=== PATIENT | male | born 1970 | race African-American/Black ===

== ENCOUNTER 2017-03-24 21:10 | Emergency (ER) | payer MEDICAID ==
[~2017-03-24] VITALS: Ht 177.8 cm; Wt 79.4 kg
[~2017-03-24 21:10] MED LIST: ALDACTONE25 MG PO; ASPIR 8181 MG PO; ATIVAN1 MG PO; AUGMENTIN 875-1 EACH PO; CIPRO500 MG PO; CIPROFLOXACIN500 M1 PO; COZAAR 25 MG TA25 M1 PO; ELOQUIS PO; HYDROCHLOROTHIA25 M2 PO; LASIX 40 MG TAB40 M2 PO; LASIX 80 MG TAB80 MG PO; LISINOPRIL20 MG PO; NORCO 5-325 TA1 EAC1 PO; NORCO 5-325 TA1 EACH PO; PERCOCET PO; POTASSIUM20 PO; PROAIR HFA8.5 GM INH; PROMETHAZINE/C118 ML PO; TOPROL XL25 MG PO; XANAX 0.5 MG0.5 M1 PO; XANAX 0.5 MG0.5 MG PO; XANAX 1 MG TABLE1 MG PO; ZYRTEC10 M5 PO; ZYRTEC10 MG PO
[2017-03-24 21:12] VITALS: BP 121/69
[2017-03-24] MEDS ORDERED: LASIX 80 MG TAB80 MG PO (21:26)
== END 2017-03-24 21:35 | disposition home or self-care (01) ==
LOC: M.ERS 21:10
DX: Z76.0 Encounter for issue of repeat prescription (principal); I11.0 Hypertensive heart disease with heart failure; Z88.1 Allergy status to other antibiotic agents

== ENCOUNTER 2017-04-18 22:46 | Emergency (ER) | payer OTHER ==
[~2017-04-18] VITALS: Ht 177.8 cm; Wt 79.4 kg
[2017-04-18 22:51] VITALS: BP 118/83
== END 2017-04-18 23:25 | disposition left against medical advice (07) ==
LOC: M.ERS 22:46
DX: Z53.21 Procedure and treatment not carried out due to patient leaving prior to being seen by health care provider (principal)

== ENCOUNTER 2017-06-11 19:50 | Emergency (ER) | payer OTHER ==
[~2017-06-11] VITALS: Ht 177.8 cm; Wt 83.9 kg
[2017-06-11 20:46] LABS: ABSOLUTE BASOPHILS 0.1 thou/uL (0.0-0.2); ABSOLUTE EOSINOPHILS 0.2 thou/uL (0.0-0.7); ABSOLUTE LYMPHOCYTES 1.8 thou/uL (0.8-5.3); ABSOLUTE MONOCYTES 0.9 thou/uL (0.0-1.2); ABSOLUTE NEUTROPHILS 6.3 thou/uL (1.6-8.1); BASOPHILS 0.9 %; EOSINOPHILS 1.8 %; HEMATOCRIT 36.4 % (42.0-52.0); HEMOGLOBIN 11.4 gm/dL (14.0-18.0); LYMPHOCYTES 19.3 %; MCH 27.1 pg (26.0-34.0); MCHC 31.3 g/dL (28.0-37.0); MCV 86.7 fL (80.0-100.0); MONOCYTES 9.4 %; MPV 9.5 fl. (7.2-11.1); NUCLEATED RBCS 0 /100WBC; PLATELET COUNT* 208 thou/uL (150-400); POLYS 68.6 %; RBC 4.19 mil/uL (4.50-6.00); RDW-CV 16.8 % (10.5-14.5); WBC 9.2 thou/uL (4.0-11.0)
[2017-06-11] MEDS ORDERED: PERCOCET 7.5-31 EACH PO (20:51)
[2017-06-11 21:02] LABS: CALCIUM 8.5 mg/dL (8.5-10.1); POTASSIUM 3.3 mmol/L (3.5-5.1)
[2017-06-11] MEDS ORDERED: COZAAR 25 MG TA25 M1 PO (21:09)
[2017-06-11] MEDS ORDERED: LASIX 80 MG TAB80 MG PO (21:09)
[2017-06-11] MEDS ORDERED: SPIRONOLACTONE25 M1 PO (21:10)
[2017-06-11 21:13] LABS: ALBUMIN 3.2 g/dL (3.4-5.0); TOTAL BILIRUBIN 0.9 mg/dL (<0.1-1.0); TOTAL PROTEIN 7.4 g/dL (6.4-8.2)
[2017-06-11] MEDS ORDERED: POTASSIUM20 PO (21:16)
[2017-06-11 21:30] VITALS: BP 116/87
[2017-06-12] MEDS ORDERED: BUMETANIDE0.25 MG/1 PO (18:10)
[2017-06-12] MEDS ORDERED: MEDROLDOSEPACK PO (19:53)
== END 2017-06-11 21:33 | disposition home or self-care (01) ==
LOC: M.ERS 19:50
PROVIDERS: Physician Assistant
DX: R07.81 Pleurodynia (principal); Z76.0 Encounter for issue of repeat prescription; I11.0 Hypertensive heart disease with heart failure; I50.9 Heart failure, unspecified; F17.210 Nicotine dependence, cigarettes, uncomplicated; Z88.1 Allergy status to other antibiotic agents

== ENCOUNTER 2017-06-12 17:47 | Emergency (ER) | payer OTHER ==
[~2017-06-12] VITALS: Ht 177.8 cm; Wt 94.2 kg
[~2017-06-12 17:47] MED LIST changes: +PERCOCET 7.5-31 EACH PO; +SPIRONOLACTONE25 M1 PO
[2017-06-12] MEDS ORDERED: BUMETANIDE0.25 MG/1 PO (18:10)
[2017-06-12] MEDS ORDERED: MEDROLDOSEPACK PO (19:53)
[2017-06-12 19:59] VITALS: BP 100/67
== END 2017-06-12 19:59 | disposition home or self-care (01) ==
LOC: M.ERS 17:47
DX: T50.995A Adverse effect of other drugs, medicaments and biological substances, initial encounter (principal); I50.9 Heart failure, unspecified; I11.0 Hypertensive heart disease with heart failure; F17.210 Nicotine dependence, cigarettes, uncomplicated; Z88.1 Allergy status to other antibiotic agents; Y92.89 Other specified places as the place of occurrence of the external cause

== ENCOUNTER 2017-06-25 21:31 | Inpatient (IN) | payer OTHER ==
[~2017-06-25] VITALS: Ht 177.8 cm; Wt 96.0 kg
[~2017-06-25 21:31] MED LIST changes: +BUMETANIDE0.25 MG/1 PO; +MEDROLDOSEPACK PO
[2017-06-25 21:34] VITALS: BP 126/90
[2017-06-25 22:00] LABS: ABSOLUTE BASOPHILS 0.1 thou/uL (0.0-0.2); ABSOLUTE EOSINOPHILS 0.1 thou/uL (0.0-0.7); ABSOLUTE LYMPHOCYTES 1.5 thou/uL (0.8-5.3); ABSOLUTE MONOCYTES 0.8 thou/uL (0.0-1.2); ABSOLUTE NEUTROPHILS 5.1 thou/uL (1.6-8.1); BASOPHILS 1.4 %; EOSINOPHILS 1.7 %; HEMATOCRIT 33.7 % (42.0-52.0); HEMOGLOBIN 10.5 gm/dL (14.0-18.0); LYMPHOCYTES 19.9 %; MCHC 31.1 g/dL (28.0-37.0); MCV 83.7 fL (80.0-100.0); MONOCYTES 10.1 %; MPV 9.6 fl. (7.2-11.1); NUCLEATED RBCS 0 /100WBC; PLATELET COUNT* 177 thou/uL (150-400); POLYS 66.9 %; RBC 4.03 mil/uL (4.50-6.00); RDW-CV 18.1 % (10.5-14.5); WBC 7.6 thou/uL (4.0-11.0)
[2017-06-25 22:14] LABS: ANION GAP 6 mmol/L (7-16); BUN 14 mg/dL (7-18); CALCIUM 8.2 mg/dL (8.5-10.1); CHLORIDE 103 mmol/L (98-107); CO2 32 mmol/L (21-32); CREATININE 1.6 mg/dL (0.6-1.3); GLUCOSE 135 mg/dL (70-99); POTASSIUM 3.5 mmol/L (3.5-5.1); SODIUM 141 mmol/L (136-145)
[2017-06-25 22:20] LABS: APTT 26.3 Seconds (25.0-31.3); INR 1.5; PROTIME 14.3 Seconds (9.20-11.50)
[2017-06-25 22:25] LABS: ALBUMIN 2.8 g/dL (3.4-5.0); ALKALINE PHOSPHATASE 82 U/L (46-116); NT-PRO BRAIN NAT PEPTIDE 2990 pg/mL (<300); SGOT 22 U/L (15-37); SGPT 36 U/L (30-65); TOTAL BILIRUBIN 1.1 mg/dL (<0.1-1.0); TOTAL PROTEIN 7.2 g/dL (6.4-8.2); TROPONIN-I LEVEL <0.06 ng/mL (<0.06)
[2017-06-25 22:47] LABS: URINE BILIRUBIN NEGATIVE (Negative); URINE BLOOD TRACE (Negative); URINE CLARITY CLEAR; URINE COLOR YELLOW; URINE GLUCOSE-RANDOM NEGATIVE (Negative); URINE KETONES NEGATIVE (Negative); URINE NITRITE-REFLEX NEGATIVE (Negative); URINE PROTEIN TRACE (Negative); URINE SPECIFIC GRAVITY 1.015 (1.005-1.030)
[2017-06-25 22:49] LABS: URINE LEUKOCYTES-REFLEX 2+ (Negative)
[2017-06-25 22:58] LABS: HYALINE CASTS 0-3 Few /LPF (None Seen); MUCUS None Seen strn/LPF (None Seen); SQUAMOUS >10 Many /LPF (0-3)
[2017-06-25 22:59] LABS: URINE WBC-REFLEX >25 Many /HPF (0-5); WBC CLUMPS Few (None Seen)
[2017-06-25 23:00] LABS: BACTERIA-REFLEX 1-9 Few /HPF (None Seen); CRYSTALS None Seen /LPF (None Seen); URINE RBC 0-2 Rare /HPF (0-2)
[2017-06-25 23:57] VITALS: BP 115/81
[2017-06-26 00:15] VITALS: BP 109/83
[2017-06-26 04:00] VITALS: BP 118/88
[2017-06-26 08:00] VITALS: BP 93/69
[2017-06-26 10:15] LABS: CALCIUM 8.5 mg/dL (8.5-10.1); CREATININE 1.4 mg/dL (0.6-1.3); MAGNESIUM 1.8 mg/dL (1.8-2.4); POTASSIUM 4.1 mmol/L (3.5-5.1)
[2017-06-26 12:00] VITALS: BP 117/87
--- NOTE | 2017-06-26 15:08 | EKG ---
[place] [address] ELECTROCARDIOGRAM REPORT Name: DARRION MCDANIEL Room: [address] ADM IN M.R.#: [id number] Admission: 06/25/17 Attend Phys: Gus Castillo MD Discharge: Date of : 70 Report #: [id number] THIS REPORT FOR: //name// [facility] ED Test Date: 2017-06-25 Test Time: 22:00:50 Pat Name: DARRION MCDANIEL Department: Room: [facility] Gender: M Synchronizer: BD : 1970 Requested By: Margaret Nielsen Order Number: [id number] MD: William Jordan Measurements Intervals [place] Rate: 97 P: 65 NC: 158 QRS: 1 QRSD: 89 T: QT: 385 QTc: 489 Interpretive Statements Sinus rhythm Probable left atrial enlargement Nonspecific T abnormalities, lateral leads Borderline prolonged QT interval Baseline wander in lead(s) V5 Compared to ECG 02/20/2017 01:02:54 T-wave abnormality now present Electronically Signed On 06-26-2017 15:08:00 CDT by William Jordan [email or web address] <ELECTRONICALLY SIGNED> By: William Jordan MD, [facility] 06/26/17 1508 99 99 William Jordan MD, [facility] /EPI
--- NOTE | 2017-06-26 15:20 | 2DMMODE ---
[place] [address] 2 D/M-MODE ECHOCARDIOGRAM Name: DARRION MCDANIEL Room: [address] IN [facility]#: [id number] Admission: 06/25/17 Attend Phys: Gus Castillo, Discharge: Date of : 70 Date of Service: 06/26/17 1520 Report #: [id number] THIS REPORT FOR: //name// APPROVED REPORT Study performed: 06/26/2017 14:01:01 EXAM: Comprehensive 2D, Doppler, and color-flow Echocardiogram Patient Location: In-Patient Room #: [facility] Status: routine BSA: 2.14 HR: 96 bpm BP: 117/87 mmHg Rhythm: NSR Other Information Study Quality: Good Indications Congestive Heart Failure Dyspnea 2D Dimensions LVEF(%): 8.76 (>50%) IVSd: 9.79 (7-11mm) LVOT Diam: 19.59 (18-24mm) LVDd: 60.78 mm PWd: 9.93 (7-11mm) Ascending Ao: 29.19 (22-36mm) LVDs: 58.39 (25-40mm) Aortic Root: 31.54 mm Dukes's LVEF: 8.76 % Volumes Left Atrial Volume (Systole) LA ESV Index: 65.70 mL/m2 Aortic Valve AoV Peak Kemal.: 0.60 m/s AO Peak Gr.: 1.46 mmHg LVOT Max P.42 mmHg AO Mean Gr.: 0.96 mmHg LVOT Mean P.31 mmHg LVOT Max V: 0.78 m/s AO V2 VTI: 6.32 cm LVOT Mean V: 0.54 m/s JENNIFER (VTI): 4.77 cm2 LVOT V1 VTI: 10.00 [place] [address] 2 D/M-MODE ECHOCARDIOGRAM Name: DARRION MCDANIEL Room: [address] IN .R.#: [id number] Admission: 06/25/17 Attend Phys: Gus Castillo, Discharge: Date of : 70 Date of Service: 06/26/17 1520 Report #: [id number] E/A Ratio: 2.57 MV Decel. Time: 88.13 ms MV E Max Kemal.: 0.79 m/s MV PHT: 25.56 ms MVA (PHT): 8.61 cm2 TDI E/Lateral E': 7.18 Lateral E' Kemal.: 0.11 m/s Pulmonary Valve PV Peak Kemal.: 0.56 m/s PV Peak Gr.: 1.26 mmHg Tricuspid Valve TR Peak Gr.: 17.38 mmHg RVSP: 32.00 mmHg Left Ventricle Left ventricle is moderately dilated. Severe global hypokinesis. There is normal left ventricular wall thickness. Left ventricular systolic function is severely decreased. LVEF is 20%. Grade IV - fixed restrictive diastolic dysfunction. Right Ventricle Right ventricle is mildly dilated. The right ventricular systolic function is normal. Pacemaker lead is present in the right ventricle. Atria Left atrium is moderately dilated. Right atrium is dilated. Aortic Valve Mild aortic valve sclerosis. Trace aortic regurgitation. There is no aortic valvular stenosis. Mitral Valve The mitral valve is normal in structure. Mild mitral regurgitation. No evidence of mitral valve stenosis. Tricuspid Valve The tricuspid valve is normal in structure. Moderate tricuspid regurgitation. The RVSP is 30-35 mmHg. Pulmonic Valve The pulmonary valve is normal in structure. Mild pulmonic [place]itation[place] [address] 2 D/M-MODE ECHOCARDIOGRAM Name: DARRION MCDANIEL Room: [address]#: [id number] Admission: 06/25/17 Attend Phys: Gus Castillo, Discharge: Date of : 70 Date of Service: 06/26/17 1520 Report #: [id number] The aortic root is normal in size. IVC is dilated and collapses <50% with inspiration. Pericardium There is no pericardial effusion. <Conclusion> Left ventricle is moderately dilated. There is normal left ventricular wall thickness. Left ventricular systolic function is severely decreased. LVEF is 20%. Grade IV - fixed restrictive diastolic dysfunction. Right ventricle is mildly dilated. Left atrium is moderately dilated. Right atrium is dilated. Mild aortic valve sclerosis. Trace aortic regurgitation. There is no aortic valvular stenosis. The mitral valve is normal in structure. Mild mitral regurgitation. The tricuspid valve is normal in structure. Moderate tricuspid regurgitation. The RVSP is 30-35 mmHg. IVC is dilated and collapses <50% with inspiration. There is no pericardial effusion. Severe global hypokinesis. Pacemaker lead is present in the right ventricle. <ELECTRONICALLY SIGNED> By: William Jordan MD, FACC 06/26/17 1520 1520 1520 William Jordan MD, FACC /INF
== END 2017-06-26 15:23 | disposition left against medical advice (07) | DRG 291 ==
LOC: M.ERS 21:31 → M.TBA-ER 23:14 → M.2W 23:29
PROVIDERS: Personal Emergency Response Attendant; ADMIT Internal Medicine
DX: I13.0 Hypertensive heart and chronic kidney disease with heart failure and stage 1 through stage 4 chronic kidney disease, or unspecified chronic kidney disease (principal); I50.23 Acute on chronic systolic (congestive) heart failure; N39.0 Urinary tract infection, site not specified; F17.210 Nicotine dependence, cigarettes, uncomplicated; R33.9 Retention of urine, unspecified; I42.9 Cardiomyopathy, unspecified; Z88.8 Allergy status to other drugs, medicaments and biological substances; Z88.1 Allergy status to other antibiotic agents; Z79.899 Other long term (current) drug therapy; Z91.14 Patient's other noncompliance with medication regimen; Z95.810 Presence of automatic (implantable) cardiac defibrillator

== ENCOUNTER 2017-06-29 22:18 | Emergency (ER) | payer OTHER ==
[~2017-06-29] VITALS: Ht 177.8 cm; Wt 96.6 kg
[2017-06-29 22:58] LABS: MCH 25.9 pg (26.0-34.0); MCHC 30.9 g/dL (28.0-37.0); PLATELET COUNT* 170 thou/uL (150-400)
[2017-06-29 23:00] LABS: ABSOLUTE BASOPHILS 0.1 thou/uL (0.0-0.2); ABSOLUTE EOSINOPHILS 0.1 thou/uL (0.0-0.7); ABSOLUTE LYMPHOCYTES 1.3 thou/uL (0.8-5.3); ABSOLUTE MONOCYTES 0.6 thou/uL (0.0-1.2); ABSOLUTE NEUTROPHILS 4.7 thou/uL (1.6-8.1); BASOPHILS 1.1 %; EOSINOPHILS 1.8 %; HEMATOCRIT 35.2 % (42.0-52.0); HEMOGLOBIN 10.9 gm/dL (14.0-18.0); LYMPHOCYTES 19.3 %; MCV 83.8 fL (80.0-100.0); MONOCYTES 8.7 %; MPV 10.3 fl. (7.2-11.1); NUCLEATED RBCS 0 /100WBC; POLYS 69.1 %; RDW-CV 18.2 % (10.5-14.5); WBC 6.7 thou/uL (4.0-11.0)
[2017-06-29 23:07] LABS: ANION GAP 9 mmol/L (7-16); APTT 25.8 Seconds (25.0-31.3); BUN 15 mg/dL (7-18); CALCIUM 8.3 mg/dL (8.5-10.1); CHLORIDE 100 mmol/L (98-107); CO2 28 mmol/L (21-32); CREATININE 1.4 mg/dL (0.6-1.3); GLUCOSE 129 mg/dL (70-99); INR 1.5; POTASSIUM 3.3 mmol/L (3.5-5.1); PROTIME 14.7 Seconds (9.20-11.50); SODIUM 137 mmol/L (136-145)
[2017-06-29 23:25] LABS: ALBUMIN 2.8 g/dL (3.4-5.0); ALKALINE PHOSPHATASE 90 U/L (46-116); CK-MB MASS 1.5 ng/mL (<0.5-3.6); LIPASE 305 U/L (73-393); MAGNESIUM 1.6 mg/dL (1.8-2.4); NT-PRO BRAIN NAT PEPTIDE 2411 pg/mL (<300); SGOT 44 U/L (15-37); SGPT 52 U/L (30-65); TOTAL BILIRUBIN 1.1 mg/dL (<0.1-1.0); TOTAL PROTEIN 7.5 g/dL (6.4-8.2); TROPONIN-I LEVEL <0.06 ng/mL (<0.06)
[2017-06-29] MEDS ORDERED: LASIX 40 MG TAB40 M2 PO (23:44)
[2017-06-29 23:55] VITALS: BP 112/79
--- NOTE | 2017-06-30 13:27 | EKG ---
[place] [address] ELECTROCARDIOGRAM REPORT Name: DARRION MCDANIEL Room: [facility]#: [id number] Admission: 06/29/17 Attend Phys: Discharge: 06/29/17 Date of : 70 Report #: [id number] THIS REPORT FOR: //name// [facility] ED Test Date: 2017-06-29 Test Time: 22:40:44 Pat Name: DARRION MCDANIEL Department: Room: Gender: M Gag Writer: LUDY [place] : 1970 Requested By: Francisco Aguiar Order Number: [id number] MD: Avery Nelson Measurements Intervals [place] Rate: 101 P: 61 NC: 158 QRS: -1 QRSD: 86 T: QT: 382 QTc: 496 Interpretive Statements Sinus tachycardia Left atrial enlargement Nonspecific T abnormalities, lateral leads Borderline prolonged QT interval Baseline wander in lead(s) II,III,aVF Compared to ECG 06/25/2017 22:00:50 Sinus rhythm no longer present T-wave abnormality still present Electronically Signed On 06-30-2017 13:27:16 CDT by Avery Nelson [email or web address] <ELECTRONICALLY SIGNED> By: Avery Nelson MD, FACC 06/30/17 1327 2240 2240 Avery Nelson MD, FAC /EPI
== END 2017-06-29 23:58 | disposition home or self-care (01) ==
LOC: M.ERS 22:18
PROVIDERS: Family Medicine
DX: I13.0 Hypertensive heart and chronic kidney disease with heart failure and stage 1 through stage 4 chronic kidney disease, or unspecified chronic kidney disease (principal); I50.9 Heart failure, unspecified; N18.3 Chronic kidney disease, stage 3 (moderate); F17.210 Nicotine dependence, cigarettes, uncomplicated; Z88.1 Allergy status to other antibiotic agents; Z88.8 Allergy status to other drugs, medicaments and biological substances

== ENCOUNTER 2017-09-22 18:26 | Inpatient (IN) | payer MEDICAID ==
[~2017-09-22] VITALS: Ht 170.2 cm; Wt 90.7 kg
--- NOTE | ~2017-09-22 | H ---
[address] [address] HISTORY AND PHYSICAL Name: ADRRION MCDANIEL Room: [address] IN .R.#: [id number] Admission: 09/22/17 Attend Phys: Marietta Bach MD Discharge: 09/23/17 Date of : 70 Report #: [id number] THIS REPORT FOR: //name// Patient was here less than 24 hour please refer to the final summation note. Patient left AMA. By: 1036Medical Records Staff ESTHELA /MAMADOU
[2017-09-22 18:27] VITALS: BP 128/51
[2017-09-22 19:02] LABS: HEMATOCRIT 34.2 % (42.0-52.0); HEMOGLOBIN 10.5 gm/dL (14.0-18.0); MCH 25.7 pg (26.0-34.0); MCHC 30.6 g/dL (28.0-37.0); MCV 83.8 fL (80.0-100.0); NUCLEATED RBCS 1 /100WBC; PLATELET COUNT* 181 thou/uL (150-400); RBC 4.08 mil/uL (4.50-6.00); RDW-CV 25.6 % (10.5-14.5); WBC 7.8 thou/uL (4.0-11.0)
[2017-09-22 19:08] LABS: ANION GAP 8 mmol/L (7-16); BUN 47 mg/dL (7-18); CALCIUM 9.1 mg/dL (8.5-10.1); CHLORIDE 96 mmol/L (98-107); CO2 28 mmol/L (21-32); CREATININE 1.6 mg/dL (0.6-1.3); GLUCOSE 121 mg/dL (70-99); POTASSIUM 3.8 mmol/L (3.5-5.1); SODIUM 132 mmol/L (136-145)
[2017-09-22 19:21] LABS: PROTIME 19.2 Seconds (9.20-11.50)
[2017-09-22 19:24] LABS: ALBUMIN 2.9 g/dL (3.4-5.0); ALKALINE PHOSPHATASE 112 U/L (46-116); NT-PRO BRAIN NAT PEPTIDE 6805 pg/mL (<300); SGOT 37 U/L (15-37); SGPT 26 U/L (30-65); TOTAL BILIRUBIN 3.8 mg/dL (<0.1-1.0); TOTAL PROTEIN 8.4 g/dL (6.4-8.2); TROPONIN-I LEVEL <0.06 ng/mL (<0.06)
[2017-09-22 19:42] LABS: ABSOLUTE LYMPHOCYTES 0.2 thou/uL (0.8-5.3); ABSOLUTE MONOCYTES 0.5 thou/uL (0.0-1.2)
[2017-09-22 19:44] LABS: ANISOCYTOSIS 2+; HYPOCHROMASIA 1+; POIKILOCYTOSIS 1+; TARGET CELLS 1+
[2017-09-22 19:45] LABS: MACROCYTES Occasional; MICROCYTES Occasional; OVALOCYTES Occasional; SCHISTOCYTES 1+
[2017-09-22 19:46] LABS: POLYCHROMASIA Occasional
[2017-09-22 22:20] VITALS: BP 107/71
[2017-09-22 23:45] VITALS: BP 101/72
[2017-09-23 04:00] VITALS: BP 96/70
--- NOTE | 2017-09-23 04:34 | NUR ---
RECEIVED REPORT AND ASSUMED CARE AT 2210. PT TRANSFERED FROM ED TO ROOM 208. CARDIAC MONITORING IN PLACE. VSS. PT DENIES ANY COMPLAINTS OF PAIN. PT VERY DROWSY DURING ADMISSION. ASSESSMENT COMPLETED CHARTED. ADMISSION COMPLETED BY NURSING. DISCUSSED PLAN OF CARE WITH PT, VERBALIZED UNDERSTANDING. CARDIOLOGY CONSULTED. PT VERY FORGETFUL AND DROWSY, NEEDING FREQUENT REDIRECTION. PT REMOVED CARDIAC MONITORING MULTIPLE TIMES DURING THE NIGHT, WAS EDUCATED ON IMPORTANCE OF LEAVING IN PLACE. PT UP WITH ASSIST, ON 2L NC. PT REMOVED NC MULTIPLE TIMES DURING THE SHIFT. NURSING APPLIED NC BACK ONTO PT. BED LOCKED IN LOWEST POSITION, CALL LIGHT WITHIN REACH, BED ALARM ON, HOURLY ROUNDING COMPLETED AND ALL NEEDS MET. WILL CONTINUE TO MONITOR
--- NOTE | 2017-09-23 07:58 | NUR ---
PT REMOVED HIS CARDIAC MONITORING AND STATED THAT HE WANTED TO LEAVE AGAINST MEDICAL ADVICE. RISK DISCUSSED WITH PT, VERBALIZED UNDERSTANDING. AMA PAPERWORK FILLED OUT AND GIVEN TO PT TO SIGN. PT STATED "I UNDERSTAND WHAT IT IS FOR, I DON'T WANT TO SIGN AND I'M NOT GOING TO". IV DISCONTINUED. AND PT GOT HIMSELF DRESSED. 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 SECURITY ARRIVED TO SPEAK WITH PATIENT ABOUT MISSING BELONGINGS. PT NOT IN ROOM, ALL BELONGINGS (CLOTHES, SHOES, CELL PHONE, PCA ASSISTED LIVING) WERE NOT IN THE ROOM.
--- NOTE | 2017-09-23 19:32 | EKG ---
[place] [address] ELECTROCARDIOGRAM REPORT Name: DARRION MCDANIEL Room: [address] IN .R#: [id number] Admission: 09/22/17 Attend Phys: Marietta Bach MD Discharge: 09/23/17 Date of : 70 Report #: [id number] THIS REPORT FOR: //name// [facility] ED Test Date: 2017-09-22 Test Time: 18:29:32 Pat Name: DARRION MCDANIEL Department: Room: Gender: Tuyere Fitter: Lionel ABRAMS : 1970 Requested By: Margaret Nielsen Order Number: [id number] MD: Avery Nelson Measurements Intervals [place] Rate: 104 P: 43 NE: 128 QRS: -7 QRSD: 92 T: 32 QT: 366 QTc: 482 Interpretive Statements Sinus tachycardia Ventricular bigeminy Low voltage, precordial leads Borderline T wave abnormalities Compared to ECG 06/29/2017 22:40:44 Ventricular premature complex(es) now present Low QRS voltage now present Atrial abnormality no longer present T-wave abnormality still present Electronically Signed On 09-23-2017 19:32:05 CDT by Avery Nelson [email or web address] <ELECTRONICALLY SIGNED> By: Avery Nelson MD, FACC 09/23/17 193 28 28 Avery Nelson MD, [facility] /EPI
== END 2017-09-23 07:40 | disposition left against medical advice (07) | DRG 313 ==
LOC: M.ERS 18:26 → M.TBA-ER 20:49 → M.2W 22:13
PROVIDERS: Personal Emergency Response Attendant; ADMIT Internal Medicine
DX: R07.9 Chest pain, unspecified (principal); I13.0 Hypertensive heart and chronic kidney disease with heart failure and stage 1 through stage 4 chronic kidney disease, or unspecified chronic kidney disease; N18.3 Chronic kidney disease, stage 3 (moderate); I50.20 Unspecified systolic (congestive) heart failure; F17.210 Nicotine dependence, cigarettes, uncomplicated; Z88.1 Allergy status to other antibiotic agents; Z88.8 Allergy status to other drugs, medicaments and biological substances; Z95.810 Presence of automatic (implantable) cardiac defibrillator

== ENCOUNTER 2017-09-25 15:38 | Emergency (ER) | payer MEDICAID ==
[~2017-09-25] VITALS: Ht 170.2 cm; Wt 90.7 kg
[2017-09-25 16:37] VITALS: BP 104/80
== END 2017-09-25 16:50 | disposition home or self-care (01) ==
LOC: M.ERS 15:38
DX: N50.89 Other specified disorders of the male genital organs (principal); I13.0 Hypertensive heart and chronic kidney disease with heart failure and stage 1 through stage 4 chronic kidney disease, or unspecified chronic kidney disease; N18.3 Chronic kidney disease, stage 3 (moderate); I50.20 Unspecified systolic (congestive) heart failure; F17.210 Nicotine dependence, cigarettes, uncomplicated; Z88.8 Allergy status to other drugs, medicaments and biological substances; Z88.1 Allergy status to other antibiotic agents

== ENCOUNTER 2017-10-18 14:54 | Inpatient (IN) | payer MEDICAID ==
[~2017-10-18] VITALS: Ht 172.7 cm; Wt 95.6 kg
[2017-10-18 15:01] VITALS: BP 110/65
[2017-10-18 15:31] LABS: HEMATOCRIT 38.8 % (42.0-52.0); HEMOGLOBIN 11.9 gm/dL (14.0-18.0); MCH 26.2 pg (26.0-34.0); MCHC 30.8 g/dL (28.0-37.0); MCV 85.3 fL (80.0-100.0); NUCLEATED RBCS 0 /100WBC; PLATELET COUNT* 167 thou/uL (150-400); RBC 4.55 mil/uL (4.50-6.00); RDW-CV 23.3 % (10.5-14.5); WBC 6.4 thou/uL (4.0-11.0)
[2017-10-18 15:42] LABS: CALCIUM 9.4 mg/dL (8.5-10.1); CREATININE 2.7 mg/dL (0.6-1.3); POTASSIUM 4.6 mmol/L (3.5-5.1)
[2017-10-18] MEDS ORDERED: ZITHROMAX500 MG PO (15:45)
[2017-10-18] MEDS ORDERED: FLAGYL500 MG PO (15:45)
[2017-10-18 15:47] LABS: ALBUMIN 2.9 g/dL (3.4-5.0); TOTAL BILIRUBIN 4.3 mg/dL (<0.1-1.0); TOTAL PROTEIN 8.3 g/dL (6.4-8.2)
[2017-10-18 16:19] LABS: ABSOLUTE LYMPHOCYTES 0.3 thou/uL (0.8-5.3); ABSOLUTE MONOCYTES 0.3 thou/uL (0.0-1.2); ABSOLUTE NEUTROPHILS 5.8 thou/uL (1.6-8.1); ANISOCYTOSIS 2+; PLATELET ESTIMATE ADEQUATE; POIKILOCYTOSIS Occasional; TARGET CELLS Occasional
[2017-10-18 16:20] LABS: HYPOCHROMASIA Occasional
[2017-10-18] MEDS ORDERED: COZAAR 25 MG TA25 M1 PO (17:30)
[2017-10-18] MEDS ORDERED: NORCO 5-325 TA1 EACH PO (17:30)
[2017-10-18] MEDS ORDERED: TOPROL XL25 MG PO (17:30)
[2017-10-18 19:29] LABS: URINE BLOOD 3+ (Negative); URINE CLARITY TURBID; URINE COLOR DARK YELLOW; URINE GLUCOSE-RANDOM NEGATIVE (Negative); URINE KETONES TRACE (Negative); URINE NITRITE-REFLEX NEGATIVE (Negative); URINE PROTEIN 2+ (Negative); URINE SPECIFIC GRAVITY >= 1.030 (1.005-1.030)
[2017-10-18 19:31] LABS: ICTOTEST (BILI CONFIRMATORY) Positive (Negative); URINE BILIRUBIN 2+ (Negative); URINE LEUKOCYTES-REFLEX 2+ (Negative)
[2017-10-18 19:37] LABS: URINE POTASSIUM-RANDOM 61.8 mmol/L
[2017-10-18 19:39] LABS: SQUAMOUS 4-10 Moderate /LPF (0-3); URINE WBC-REFLEX >25 Many /HPF (0-5)
[2017-10-18 19:40] LABS: BACTERIA-REFLEX 1-9 Few /HPF (None Seen); HYALINE CASTS 4-10 Moderate /LPF (None Seen)
[2017-10-18 19:41] LABS: CRYSTALS None Seen /LPF (None Seen)
[2017-10-18 19:45] VITALS: BP 170/106
[2017-10-18 20:15] VITALS: BP 130/111
[2017-10-19] VITALS: BP 112/67
[2017-10-19 08:00] VITALS: BP 114/70
[2017-10-19 11:49] VITALS: BP 127/74
[2017-10-19 15:39] VITALS: BP 121/54
[2017-10-19 20:04] VITALS: BP 129/94
[2017-10-20] VITALS: BP 102/64
[2017-10-20 04:00] VITALS: BP 96/62
[2017-10-20 04:54] LABS: HEMATOCRIT 36.9 % (42.0-52.0); HEMOGLOBIN 11.2 gm/dL (14.0-18.0); MCHC 30.4 g/dL (28.0-37.0); MCV 85.4 fL (80.0-100.0); MPV 9.2 fl. (7.2-11.1); RBC 4.32 mil/uL (4.50-6.00); RDW-CV 22.9 % (10.5-14.5); WBC 6.4 thou/uL (4.0-11.0)
[2017-10-20 05:15] LABS: CALCIUM 8.9 mg/dL (8.5-10.1); CREATININE 2.9 mg/dL (0.6-1.3); MAGNESIUM 2.6 mg/dL (1.8-2.4); POTASSIUM 4.2 mmol/L (3.5-5.1)
[2017-10-20 08:00] VITALS: BP 122/91
[2017-10-20 12:00] VITALS: BP 89/65
[2017-10-20 15:59] VITALS: BP 125/87
[2017-10-20 20:00] VITALS: BP 92/49
[2017-10-21] VITALS: BP 112/76
[2017-10-21 04:00] VITALS: BP 113/75
[2017-10-21 05:00] LABS: INR 1.9; PROTIME 18.1 Seconds (9.20-11.50)
[2017-10-21 05:08] LABS: HEMATOCRIT 36.4 % (42.0-52.0); HEMOGLOBIN 11.2 gm/dL (14.0-18.0); MCH 26.1 pg (26.0-34.0); MCHC 30.7 g/dL (28.0-37.0); MPV 9.4 fl. (7.2-11.1); RBC 4.29 mil/uL (4.50-6.00); WBC 6.5 thou/uL (4.0-11.0)
[2017-10-21 05:14] LABS: CALCIUM 8.7 mg/dL (8.5-10.1); CREATININE 2.7 mg/dL (0.6-1.3); MAGNESIUM 2.7 mg/dL (1.8-2.4); POTASSIUM 4.1 mmol/L (3.5-5.1)
[2017-10-21 08:00] VITALS: BP 103/69
[2017-10-21] MEDS ORDERED: LASIX 40 MG TAB40 M1 PO (09:35)
[2017-10-21] MEDS ORDERED: FLAGYL500 MG PO (09:37)
[2017-10-21 09:38] LABS: INR 1.9; PROTIME 18.5 Seconds (9.20-11.50)
[2017-10-22 09:09] LABS: HEPATITIS B SURFACE AG Negative (Negative)
--- NOTE | 2017-10-23 12:54 | CON ---
[facility] [address] [place] [address] CONSULTATION Name: DARRION MCDANIEL Room: [address] IN M.R.#: [id number] Admission: 10/18/17 Attend Phys: Gus Castillo MD Discharge: 10/21/17 Date of : 70 Report #: [id number] THIS REPORT FOR: //name// CC: [facility] physician/PCP Gus Castillo DATE OF SERVICE: 10/19/2017 PRIMARY CARE PHYSICIAN: Dr. Wright, [facility]. CHIEF COMPLAINT: CHF. HISTORY OF PRESENT ILLNESS: The patient is a 47-year-old man, with ischemic cardiomyopathy and apparently severe LV dysfunction, presented with difficulty urinating. During his workup, it was felt he was in a bit of heart failure. He admits he does not take his medications. Apparently, he had left A from a couple hospitals over the last several months with CHF exacerbations. Details of this are not available at this time. From a cardiovascular standpoint, he does have a defibrillator. He denies any recent shocks. He denies chest pain or pressure. He denies syncope or presyncope. He denies fevers or chills. His dysuria and hesitancy is a chronic problem. He has a history of prior bladder surgery. Details of this are not available. HOME MEDICATIONS: Include the following: Lasix 80 mg p.o. b.i.d., alprazolam p.r.n., OxyContin, losartan 25 mg daily, Toprol-XL 25 mg, potassium chloride 20 mEq p.o. b.i.d., Aldactone 25 mg daily. PAST MEDICAL HISTORY: Ischemic cardiomyopathy, hypertension, chronic kidney disease, urethral strictures. Baseline creatinine is 2.07 based on lab from [facility]. His BNP is chronically elevated. There is lab from where his BNP is over 3000. SOCIAL HISTORY: He is a tobacco user. He does not drink apparently. FAMILY HISTORY: Positive for heart disease. REVIEW OF SYSTEMS: CENTRAL NERVOUS SYSTEM: [place] [address] CONSULTATION Name: DARRION MCDANIEL Room: [address]#: [id number] Admission: 10/18/17 Attend Phys: Gus Castillo MD Discharge: 10/21/17 Date of : 70 Report #: [id number] GENERAL: No weight loss or fevers. RESPIRATORY: Positive cough, positive sputum production, no emphysema documented. CARDIOVASCULAR: No palpitations, no chest discomfort. Positive dyspnea, positive orthopnea. Positive edema. ENDOCRINE: No diabetes or thyroid problems. GASTROINTESTINAL: No vomiting, vomiting blood or ulcers. GENITOURINARY: Positive dysuria and hematuria. HEMATOLOGIC: No anemia or bleeding disorders. ALLERGIES: No seasonal, medical, aspirin or contrast allergies. PSYCHIATRIC: No depression. Positive anxiety. MUSCULOSKELETAL: No arthritis or connective tissue disease. SKIN: No rashes. EYES: No loss of vision. EARS, NOSE, THROAT AND MOUTH: No decreased hearing. No bleeding from nose or dentures. PHYSICAL EXAMINATION: VITAL SIGNS: Blood pressure is 114/70, pulse is 96, weight is 95 kilos. GENERAL: This is a somnolent male. He is minimally compliant with questioning, appears to be somnolent, but has no focal neurologic deficit. NECK: No jugular venous distention. CARDIOVASCULAR: Regular. There is positive S3. LUNGS: Have diminished breath sounds. ABDOMEN: Nontender. EXTREMITIES: There is no peripheral edema. SKIN: Warm and dry. PSYCHIATRIC: The patient has appropriate mood and affect. Electrocardiogram demonstrates a sinus rhythm, diffuse T-wave inversion. LABORATORY DATA: Hemoglobin is 11.9, white blood count is 6.4, platelet count is 167,000. Sodium 131, potassium 4.6, chloride is 93, BUN is 47, creatinine is 2.7. Troponin I is 0.06 x 3 sets. NT-proBNP is 11,985. Chest x-ray shows large right effusion with compression atelectasis in the right middle and lower lobes and small left effusion. IMPRESSION: 1. Acute systolic congestive heart failure. I would continue diuretic therapy. I suspect he has been noncompliant with his therapy based on historical data. 2. Large pleural effusion. I would recommend a thoracentesis. I do not think he will diurese well with his kidney function. 3. Coronary artery disease. He remains asymptomatic for angina. We will continue [place] [address] CONSULTATION Name: DARRION MCDANIEL Room: [address] IN [facility].#: [id number] Admission: 10/18/17 Attend Phys: Gus Castillo MD Discharge: 10/21/17 Date of : 70 Report #: [id number] 4. Status post implantable cardioverter defibrillator, he has and will continue to follow with Dr. Wright. <ELECTRONICALLY SIGNED> By: Cedrick Ybarra MD, FACC 10/23/17 1254 1043 [id number] Ybarra MD, FACC /nt
== END 2017-10-21 10:47 | disposition left against medical advice (07) | DRG 291 ==
LOC: M.ERS 14:54 → M.TBA-ER 18:02 → M.2W 18:02
PROVIDERS: Internal Medicine Cardiovascular Disease; Nurse Practitioner Family; ADMIT Internal Medicine
DX: I13.0 Hypertensive heart and chronic kidney disease with heart failure and stage 1 through stage 4 chronic kidney disease, or unspecified chronic kidney disease (principal); I50.43 Acute on chronic combined systolic (congestive) and diastolic (congestive) heart failure; N17.0 Acute kidney failure with tubular necrosis; N18.4 Chronic kidney disease, stage 4 (severe); E44.0 Moderate protein-calorie malnutrition; I25.5 Ischemic cardiomyopathy; F17.210 Nicotine dependence, cigarettes, uncomplicated; I25.10 Atherosclerotic heart disease of native coronary artery without angina pectoris; N34.2 Other urethritis; K75.81 Nonalcoholic steatohepatitis (NASH); Z53.21 Procedure and treatment not carried out due to patient leaving prior to being seen by health care provider; K74.60 Unspecified cirrhosis of liver; Z68.32 Body mass index [BMI] 32.0-32.9, adult; Z91.14 Patient's other noncompliance with medication regimen; Z95.810 Presence of automatic (implantable) cardiac defibrillator; Z79.899 Other long term (current) drug therapy; Z88.1 Allergy status to other antibiotic agents; Z88.8 Allergy status to other drugs, medicaments and biological substances; Z82.49 Family history of ischemic heart disease and other diseases of the circulatory system